=== PATIENT | male | born 1955 | race Caucasian/White ===

== ENCOUNTER → 2019-01-08 | Outpatient (CLI) | payer MEDICARE, OTHER, MEDICAID ==
[~2019-01-08] MED LIST: BETAMETHASONE D50 G3; CLONIDINE0.1 PO; CYCLOPHOSPHAMID50 M1 PO; HYDRALAZINE 2525 MG PO; MULTI VITAMIN1 EACH PO; NORVASC10 MG PO; OS-CAL 500+D C1 EACH PO; PHOSLO667 MG PO; PREDNISONE 20 M20 M1 PO; SYNTHROID200 MCG PO
[2019-01-08 10:37] LABS: CALCIUM 9.4 mg/dL (8.5-10.1); CREATININE 2.9 mg/dL (0.6-1.3); POTASSIUM 4.5 mmol/L (3.5-5.1)
== END ==
LOC: M.LAB 07:28
PROVIDERS: Internal Medicine Nephrology
DX: N18.6 End stage renal disease (principal)

== ENCOUNTER → 2019-01-11 | Outpatient (CLI) | payer MEDICARE, OTHER, MEDICAID ==
[2019-01-11 08:59] LABS: CALCIUM 9.2 mg/dL (8.5-10.1); CREATININE 2.7 mg/dL (0.6-1.3); POTASSIUM 5.1 mmol/L (3.5-5.1)
== END ==
LOC: M.LAB 08:08
PROVIDERS: Internal Medicine Nephrology
DX: I12.0 Hypertensive chronic kidney disease with stage 5 chronic kidney disease or end stage renal disease (principal); N18.6 End stage renal disease

== ENCOUNTER → 2020-01-21 | Day surgery (SDC) | payer MEDICARE, MEDICAID ==
[~2020-01-21] MED LIST changes: +ASA81BEC PO; +CALCIPOTRIENE60 GM TOP; +FAMOTIDINE 20 M20 MG PO; +LEVOXYL137 MCG PO; +LOPRESSOR50 MG PO; +MAGNESIUM400 M1 PO; +MYFORTIC360 MG PO; +NORVASC5 M1 PO; +PERCOCET 5-3251 EACH PO; +PROTONIX 20 MG20 MG PO; +SERTRALINE HCL50 MG PO; +TACROLIMUS1 MG PO; +VITAMIN D32000 UNI2 PO
[2020-01-21 07:22] LABS: HEMATOCRIT 42.5 % (42.0-52.0); HEMOGLOBIN 14.5 gm/dL (14.0-18.0); MCH 34.1 pg (26.0-34.0); MCHC 34.2 g/dL (28.0-37.0); MCV 99.5 fL (80.0-100.0); MPV 8.4 fl. (7.2-11.1); RBC 4.27 mil/uL (4.50-6.00); RDW-CV 13.4 % (10.5-14.5); WBC 5.6 thou/uL (4.0-11.0)
[2020-01-21 07:31] LABS: CALCIUM 8.9 mg/dL (8.5-10.1); CREATININE 1.6 mg/dL (0.6-1.3); POTASSIUM 4.3 mmol/L (3.5-5.1)
--- NOTE | 2020-01-21 16:48 | EKG ---
[place] [address] ELECTROCARDIOGRAM REPORT Name: MAXIMILIAN CH Room: [facility]#: [id number] Admission: 01/21/20 Attend Phys: Twin Hernandez Discharge: Date of : 59 Date of Service: 01/21/20723 Report #: [id number] THIS REPORT FOR: //name// [facility] Test Date: 2020-01-21 Test Time: 07:24:16 Pat Name: MAXIMILIAN CH Department: Room: Gender: Contract Administrator: : 1955 Requested By: Celso Crane Order Number: [id number] Zita MD: Jamar Stanton Measurements Intervals [place] Rate: 53 P: 36 VT: 145 QRS: 38 QRSD: 94 T: 52 QT: 443 QTc: 416 Interpretive Statements Sinus rhythm Probable left atrial enlargement No previous ECG available for comparison Electronically Signed On 01-21-2020 16:47:49 CDT by Jamar Stanton [email or web address] <ELECTRONICALLY SIGNED> By: Jamar Stanton MD, [facility] 01/21/20 1647 3 3 Jamar Stanton MD, FACC /EPI
--- NOTE | 2020-02-03 14:12 | OP ---
[address] [address] OPERATIVE REPORT Name: MAXIMILIAN CH Room: [facility].#: [id number] Admission: 01/21/20 Attend Phys: Celso Crane DO Discharge: Date of : 59 Report #: [id number] THIS REPORT FOR: //name// cc: Glenroy Arora Adam J DO ~ THIS REPORT FOR: //name// CC: Glenroy Crane DATE OF SERVICE: 01/21/2020 PREOPERATIVE DIAGNOSES: Left shoulder high-grade partial thickness rotator cuff tear, biceps tendinopathy, subacromial bursitis. POSTOPERATIVE DIAGNOSES: Include, left shoulder chronic full thickness rotator cuff tear, partial long head biceps tendon rupture, subacromial bursitis, and degenerative labral tears. OPERATION: Left shoulder arthroscopy with extensive debridement of rotator cuff and labrum, biceps tenotomy, subacromial decompression with mini open rotator cuff repair. SURGEON: Celso Crane DO DIGITAL PROJECT MANAGER: Kian Monte DO and Willard Frye DO ESTIMATED BLOOD LOSS: 10 mL ANTIBIOTICS: 2 grams IV Ancef given within 1 hour of skin incision. ANESTHESIA: Preoperative interscalene block plus general during the procedure. DRAINS: None. SPECIMENS: None. COMPLICATIONS: None. CONDITION: Stable. DISPOSITION: PACU to home. OPERATIVE FINDINGS: Upon intra-articular examination of the shoulder, there was significant tendinopathy and a partial rupture of the long head biceps tendon. The tendon was very diseased appearing, thickened and hypertrophied with [facility] [address] [place] [address] OPERATIVE REPORT Name: MAXIMILIAN CH Room: [facility] M.R.#: [id number] Admission: 01/21/20 Attend Phys: Celso Crane DO Discharge: Date of : 59 Report #: [id number] multiple longitudinal split tears. From the intra-articular view, there was at least a very high-grade partial thickness tear of the rotator cuff at the supraspinatus footprint. Upon subacromial visualization, there was a full thickness component. There was also mild hypertrophy of the subacromial bursa. There was degenerative fraying involving the anterior and posterior labrum. OPERATIVE INDICATIONS: The patient is a pleasant 64-year-old male who has been followed in orthopedic clinic regarding his longstanding left shoulder pain. This has been chronic in nature; however, worsening over the last few weeks. We initially attempted conservative treatment from activity modifications, physical therapy and injections; however, he did not have any response to this and continued to have severe pains, which were limiting his activities of daily living. Therefore, we did obtain an MRI, which did confirm the above-mentioned diagnoses, shoulder arthroscopy with rotator cuff repair, possible biceps tenotomy versus tenodesis, and all other indicated procedures were discussed with the patient, his informed consent was signed. DESCRIPTION OF PROCEDURE: The patient was taken to the operating suite and placed on operating table in supine position where general anesthesia was then induced. The patient was then placed in the upright beach chair position and well secured to the table with all bony prominences well padded. Left shoulder region was then sterilely prepped and draped free in the usual fashion. A timeout was then performed to confirm the safety check has been completed, all the present OR personnel were in agreement. The anatomical landmarks were marked out about the left shoulder. The 11 blade scalpel was then used to incise the skin and a standard posterior portal was established. A full diagnostic arthroscopy was then performed with the above-mentioned findings. A direct anterior portal was established under direct visualization within the rotator interval. Skin was incised. The arthroscopic shaver was used to debride the significant tearing, which was obscuring the visualization. Once this was done, there was obvious pathology of the biceps tendon. Therefore, a tenotomy was performed with the arthroscopic scissors. Further debridement was then performed of the anterior and posterior labrum as there was significant degenerative fraying. The labrum, however, was stable in nature. Attention was then taken to the subacromial space. A direct lateral portal was established. There was a moderate amount of bursal tissue, which was debrided arthroscopically. We were able to visualize the full thickness component of the rotator cuff tear. Attention was then taken to the mini open portion of the procedure. An approximately 3 cm incision was marked out over the anterolateral aspect of the acromion extending distally. Sharp dissection was carried down through the skin and subcutaneous tissue. Electrocautery was then used to maintain hemostasis. The deltoid raphe was identified and the deltoid fibers were split in line with the muscle fibers. Retractors were then placed exposing the underlying subacromial bursal tissue, which was further debrided and once again exposing the full thickness component of the rotator cuff tear. The rotator cuff footprint was then debrided at this time [place] [address] OPERATIVE REPORT Name: MAXIMILIAN CH Room: [facility]#: [id number] Admission: 01/21/20 Attend Phys: Celso Crane, Discharge: Date of : 59 Report #: [id number] followed by a hand rasp. Once the footprint was prepared, we then proceeded to perform a double row repair utilizing the [employer] SpeedBridge construct. The medial row anchors were punched just lateral to the articular surface. The preloaded 4.75 SwiveLock anchors were then appropriately placed. The sutures were then passed through the rotator cuff tissue. The area of the lateral row anchors was then debrided, holes were then punched and the FiberTapes were passed through the eyelet of the lateral row anchors and the anchors were then placed and the rotator cuff repair was appropriately tensioned as the anchors were placed. The excess sutures were then cut away. The repair was inspected. There was excellent reestablishment of the rotator cuff anatomy and the footprints. We palpated for the bicipital groove. Electrocautery was used to make a split over the bicipital tendon, and a hemostat was used to retrieve the tendon. This was once again inspected and found to have the significant pathology. Therefore, was further debrided utilizing Metzenbaum scissors. The wound was then copiously irrigated. A layered closure was then performed beginning with an 0 Vicryl to repair the deltoid fascia. The 2-0 Monocryl was then used subcutaneously followed by a 3-0 running Monocryl suture and skin glue on the incision. Portal sites were closed with simple interrupted nylon sutures. Sterile dressing was then applied with Xeroform, 4 x 4's, ABD bandages and tape. The patient was awakened from general anesthetic and transferred to PACU in stable condition with no apparent complications. Sponge and needle counts reported correct by the OR personnel. ATTESTATION: Dr. Crane was present for all critical aspects of surgery. <ELECTRONICALLY SIGNED> By: Celso Crane DO 02/03/20 1412 [id number] Crane DO /nt
== END | disposition home or self-care (01) ==
LOC: M.SUR 06:30
PROVIDERS: Orthopaedic Surgery
DX: M75.102 Unspecified rotator cuff tear or rupture of left shoulder, not specified as traumatic (principal); M75.22 Bicipital tendinitis, left shoulder; M75.52 Bursitis of left shoulder; M25.512 Pain in left shoulder; S46.112A Strain of muscle, fascia and tendon of long head of biceps, left arm, initial encounter; M24.112 Other articular cartilage disorders, left shoulder; Z98.890 Other specified postprocedural states; Z79.899 Other long term (current) drug therapy; Z85.828 Personal history of other malignant neoplasm of skin; Z88.8 Allergy status to other drugs, medicaments and biological substances; Z79.82 Long term (current) use of aspirin; X58.XXXA Exposure to other specified factors, initial encounter; Y93.89 Activity, other specified; Y92.89 Other specified places as the place of occurrence of the external cause; Y99.8 Other external cause status

== ENCOUNTER → 2021-01-15 | Outpatient (CLI) | payer MEDICARE, MEDICAID ==
--- NOTE | 2021-01-15 14:24 | 2DMMODE ---
[place] [address] 2 D/M-MODE ECHOCARDIOGRAM Name: MAXIMILIAN CH Room: [facility]#: [id number] Admission: 01/15/21 Attend Phys: Marcio Adams, Discharge: Date of : 59 Date of Service: 01/15/21 1424 Report #: [id number] THIS REPORT FOR: cc: Glenroy Arora Adam J DO Holkins,Jamar Gama MD [facility] ~ APPROVED REPORT Study performed: 01/15/2021 12:36:10 EXAM: Comprehensive 2D, Doppler, and color-flow Echocardiogram Patient Location: Out-Patient BSA: 2.16 HR: 62 bpm BP: 120/70 mmHg Other Information Study Quality: Fair Indications Atrial Fibrillation Cardiomyopathy 2D Dimensions IVSd: 11.16 (7-11mm) LVOT Diam: 20.37 (18-24mm) LVDd: 61.65 mm PWd: 11.48 (7-11mm) Ascending Ao: 34.14 (22-36mm) LVDs: 40.68 (25-40mm) Aortic Root: 31.99 mm Volumes Left Atrial Volume (Systole) LA ESV Index: 23.00 mL/m2 Aortic Valve AoV Peak Andrew.: 1.13 m/s AO Peak Gr.: 5.11 mmHg LVOT Max P.15 mmHg AO Mean Gr.: 2.37 mmHg LVOT Mean P.23 mmHg LVOT Max V: 1.13 m/s AO V2 VTI: 20.06 cm LVOT Mean V: 0.67 m/s FLORINA (VTI): 3.83 cm2 LVOT V1 VTI: 23.58 cm AI [place]: 2.82 m/s2 AI PHT: 435.29 [place] [address] 2 D/M-MODE ECHOCARDIOGRAM Name: MAXIMILIAN CH Room: [facility]#: [id number] Admission: 01/15/21 Attend Phys: Marcio Adams, Discharge: Date of : 59 Date of Service: 01/15/21 1424 Report #: [id number] Mitral Valve E/A Ratio: 1.19 MV Decel. Time: 209.27 ms MV E Max Andrew.: 0.49 m/s MV PHT: 60.69 ms MVA (PHT): 3.63 cm2 TDI E/Lateral E': 4.45 E/Medial E': 4.45 Medial E' Andrew.: 0.11 m/s Lateral E' Andrew.: 0.11 m/s Pulmonary Valve PV Peak Andrew.: 0.91 m/s PV Peak Gr.: 3.30 mmHg Tricuspid Valve RAP Estimate: 5.00 mmHg TR Peak Gr.: 25.36 mmHg RVSP: 30.36 mmHg PA Pressure: 30.36 mmHg Left Ventricle The left ventricle is normal size. There is normal LV segmental wall motion. There is normal left ventricular wall thickness. Left ventricular systolic function is normal. The left ventricular ejection fraction is within the normal range. LVEF is 55-60%. The left ventricular diastolic function is normal. Right Ventricle The right ventricle is normal size. The right ventricular systolic function is normal. Atria The left atrium size is normal. The right atrium size is normal. Aortic Valve The aortic valve is normal in structure. Mild aortic regurgitation. There is no aortic valvular stenosis. Mitral Valve The mitral valve is normal in structure. Mild to moderate mitral regurgitation. No evidence of mitral valve stenosis. Tricuspid Valve The tricuspid valve is normal in structure[place] [address] 2 D/M-MODE ECHOCARDIOGRAM Name: MAXIMILIAN CH Room: [facility]#: [id number] Admission: 01/15/21 Attend Phys: Marcio Adams, Discharge: Date of : 59 Date of Service: 01/15/21 1424 Report #: [id number] regurgitation. Pulmonic Valve The pulmonary valve is normal in structure. There is no pulmonic valvular regurgitation. Great Vessels The aortic root is normal in size. IVC is normal in size and collapses >50% with inspiration. Pericardium There is no pericardial effusion. <Conclusion> The left ventricle is normal size. Left ventricular systolic function is normal. The left ventricular ejection fraction is within the normal range. LVEF is 55-60%. The left ventricular diastolic function is normal. The right ventricle is normal size. The left atrium size is normal. The aortic valve is normal in structure. Mild aortic regurgitation. There is no aortic valvular stenosis. The mitral valve is normal in structure. Mild to moderate mitral regurgitation. The tricuspid valve is normal in structure. Mild tricuspid regurgitation. IVC is normal in size and collapses >50% with inspiration. There is no pericardial effusion. There is normal LV segmental wall motion. <ELECTRONICALLY SIGNED> By: Jamar Stanton MD, FACC 01/15/21 1424 1424 1424 Jamar Stanton MD, FACC /INF
== END ==
LOC: M.CRD 01-10 09:00
PROVIDERS: ATTEND Internal Medicine Cardiovascular Disease
DX: I08.3 Combined rheumatic disorders of mitral, aortic and tricuspid valves (principal)